=== PATIENT | female | born 1980 | race American Indian/Alaskan Native ===

== ENCOUNTER 2016-06-19 10:41 | Inpatient (IN) | payer MEDICARE ==
[2016-06-19] MEDS ORDERED: NORCO 5/325 PO ONE (13:37)
[2016-06-19 14:33] LABS: Basophils % (Auto) 0.8 % (0.0-1.8); Eosinophils % (Auto) 5.9 % (0.0-4.3); Hematocrit 35.8 % (30.3-42.9); Hemoglobin 11.4 gm/dl (10.1-14.3); Mean Corpuscular HGB Conc 32 % (30-34); Mean Corpuscular Hemoglobin 30 pg (28-32); Mean Corpuscular Volume 95 fl (79-97); Platelet Count 219 K/mm3 (140-440); Red Blood Count 3.78 M/mm3 (3.65-5.03); Red Cell Distribution Width 18.9 % (13.2-15.2); White Blood Count 7.1 K/mm3 (4.5-11.0)
--- NOTE | 2016-06-19 14:41 | XRay Report ---
LEFT FOOT, 2 VIEWS History: Osteomyelitis, pain. Findings: Compared to 08/21/09. There is moderate diffuse soft tissue swelling and possible laceration/ulceration laterally. Severe degenerative changes are noted throughout the midfoot and the ankle joint. There is no obvious fracture or bony destruction. Impression: Chronic findings are as outlined above. No obvious findings of osteomyelitis on 2 views x-ray. If further evaluation is needed, MRI with contrast would provide the most information.
--- NOTE | 2016-06-19 15:16 | XRay Report ---
ROUTINE CHEST, TWO VIEWS: HISTORY: Sepsis. The trachea, heart, mediastinal contour, lung modi and bony thorax are unremarkable. IMPRESSION: No acute cardiopulmonary process.
[2016-06-19 15:24] LABS: Potassium TNR mmol/L (3.6-5.0); Sodium TNR mmol/L (137-145)
[2016-06-19 15:25] LABS: Anion Gap TNR mmol/L; BUN/Creatinine Ratio TNR; Blood Urea Nitrogen TNR mg/dL (7-17); Calcium TNR mg/dL (8.4-10.2); Carbon Dioxide TNR mmol/L (22-30); Chloride TNR mmol/L (98-107); Glucose TNR mg/dL (65-100)
[2016-06-19 15:26] LABS: Alanine Aminotransferase TNR units/L (7-56); Albumin TNR g/dL (3.9-5); Albumin/Globulin Ratio TNR %; Alkaline Phosphatase TNR units/L (35-129); Bilirubin,Total TNR mg/dL (0.1-1.2); Total Protein TNR g/dL (6.3-8.2)
[2016-06-19 16:58] LABS: Albumin 2.8 g/dL (3.9-5); Albumin/Globulin Ratio 0.5 %; BUN/Creatinine Ratio 4.39; Bilirubin,Total 0.3 mg/dL (0.1-1.2); Chloride 97.6 mmol/L (98-107); Potassium 5.6 mmol/L (3.6-5.0); Total Protein 8.2 g/dL (6.3-8.2)
[2016-06-19 17:02] LABS: Calcium 4.9 mg/dL (8.4-10.2)
--- NOTE | 2016-06-19 18:47 | Admit Criteria Form ---
Admission Criteria Documentation: HYPONATREMIA; HYPERNATREMIA; HYPOKALEMIA; HYPERKALEMIA; HYPOCALCEMIA; HYPERCALCEMIA Clinical Indications for Inpatient Care (Place 'X' for any and all applicable criteria): Ongoing inpatient care may be indicated for ANY ONE of the following [G](1)(2)(3 )(5): [ ]I. Hyponatremia with ANY ONE of the following: [ ]a) Sodium less than 130 mEq/L (mmol/L) (new) (6)(22) [ ]b) Sodium less than 135 mEq/L (mmol/L) with ANY ONE of the following: [ ]i) Severe medical etiology requiring inpatient management (eg, heart failure, hypovolemia) [ ]ii) Altered mental status [ ]iii) Seizures [ ]II. Hypernatremia with ANY ONE of the following: [ ]a) Sodium greater than 155 mEq/L (mmol/L) [ ]b) Sodium greater than 150 mEq/L (mmol/L) with ANY ONE of the following: [ ] i) Altered mental status [ ]ii) Seizures [ ]iii) Severe medical etiology (eg, hypovolemia, diabetes insipidus) [ ]iv) Severe weakness [ ]v) Severe medical etiology (eg, hemolysis, infection, drug overdose) [ ]III. Hypokalemia with ANY ONE of the following: [ ]a) Potassium less than 2.5 mEq/L (mmol/L) despite outpatient and emergency treatment [ ]b) Potassium less than 3.0 mEq/L (mmol/L) with ANY ONE of the following: [ ]i) Weakness [ ]ii) Cardiac abnormality (eg, arrhythmia, conduction disturbance) [ ]iii) Cardiac ischemia [ ]iv) Ileus [ ]v) Ongoing medical cause requiring inpatient management. ( e.g., acute renal wasting, SIADH) [ ]vi) Other severe symptoms [X ] IV. Hyperkalemia with ANY ONE of the following: [ ]a) Potassium greater than 6.5 mEq/L (mmol/L) [X ]b) Potassium greater than 5 mEq/L (mmol/L) with ANY ONE of the following: [ ]i) Severe ECG findings [H] [X ]ii) Acute worsening of renal failure (creatinine greater than 2.5 mg/dL (221 micromoles/L) or significant elevation for age and size) [ X] V. Hypocalcemia with ANY ONE of the following: [X ]a) Calcium less than 7 mg/dL (1.75 mmol/L) despite outpatient and emergency treatment(19) [ ]b) Calcium less than 8 mg/dL (2 mmol/L) with significant symptoms or findings; examples include: [ ]i) Cardiac abnormality (eg, arrhythmia or conduction disturbance) [ ]ii) Altered mental status [ ]iii) Seizures [ ]iv) Breathing difficulty [ ]v) Muscle spasms [ ]. Hypercalcemia with ANY ONE of the following: [ ]a) Calcium greater than 14 mg/dL (3.5 mmol/L) [ ]b) Calcium greater than 12 mg/dL (3 mmol/L) with ANY ONE of the following: [ ]i) Significant dehydration or hypovolemia as indicated by ANY ONE of the following(2): [ ]1. Clinically significant dehydration as indicated by ANY ONE of the following: [ ]A. Acute loss of weight from baseline (5% of body weight in adults, 9% in pediatric patients) [ ]B. Hemodynamic instability [ ]C. Acute renal failure [ ]D. Serum sodium greater than 150 mEq/L (mmol/L) [ ]2) Dehydration that is persistent indicated by ALL of the following: [ ]A. Oral rehydration therapy not tolerated or insufficient to adequately correct dehydration [ ]B. Appropriate intravenous treatment (eg, fluids ) does not readily correct dehydration ie, after 12 to 24 hours of treatment) [ ]ii) Significant symptoms or findings; examples include: [ ]1) Altered mental status [ ]2) Cardiac abnormality (eg, arrhythmia, conduction disturbance) [ ]3) Cardiac abnormality (eg, arrhythmia, conduction disturbance) The original [facility] content created by [employer] has been revised. The portions of the content which have been revised are identified through the use of italic text or in bold, and [facility] [facility] has neither reviewed nor approved the modified material. All other unmodified content is copyright [facility] Please see references footnoted in the original [facility] edition 2016 Admission Criteria Met: Yes
[2016-06-19] MEDS ORDERED: MILK OF MAGNESIA PO PRN (21:00)
[2016-06-19] MEDS ORDERED: DULCOLAX PR PRN (21:00)
--- NOTE | 2016-06-19 21:00 | History and Physical Report ---
History of Present Illness Date of examination: 06/19/16 Date of admission: 06/19/16 Chief complaint: L foot infection 2 weeks History of present illness: 36 year old female with PMhx nephrotic syndrome, dialysis presents to the ED for evaluation of callous to bottom of left foot. She reports callous was evaluated by PCP when it was approximately dime sized but notes area became cracked and enlarged 2 weeks age. She reports malodourous drainage with small amount blood from area for several days. 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 Patient does not make any urine and attends dialysis MWF; states she did not go to dialysis today and last treatment was 2 days ago. Denies fever, nausea, vomiting, chest pain, shortness of breath, chills and abdominal pain. Past History Past Medical History: ESRD, hypertension Past Surgical History: Other (AV fistula) Medications and Allergies Allergies Allergy/AdvReac Type Severity Reaction Status Date / Time No Known Allergies Allergy Verified 06/19/16 10:46 Home Medications Medication Instructions Recorded Confirmed Last Taken Type No Known Home Medications [No 06/19/16 06/19/16 Unknown History Reported Home Medications] Review of Systems All systems: negative Constitutional: no weight loss, no weight gain Ears, nose, mouth and throat: no dysphagia, no hoarseness, no sore throat Breasts: deferred Cardiovascular: no chest pain, no orthopnea, no palpitations, no shortness of breath, no dyspnea on exertion Respiratory: no shortness of breath, no dyspnea on exertion, no congestion, no wheezing Gastrointestinal: no abdominal pain, no nausea, no vomiting, no diarrhea, no constipation, no change in bowel habits, no hematemesis Genitourinary Female: no dyspareunia, no dysmenorrhea, no pelvic pain Menstruation: currently menstrual Musculoskeletal: no neck stiffness, no neck pain Integumentary: sores (L foot) Neurological: no seizures, no syncope Psychiatric: no anxiety, no depression Endocrine: no cold intolerance, no heat intolerance, no polyphagia, no excessive thirst Hematologic/Lymphatic: no easy bruising, no easy bleeding Allergic/Immunologic: no urticaria, no allergic rhinitis, no wheezing Exam - Constitutional Vitals: Temp Pulse Resp BP Pulse Ox 97.6 F 71 18 145/89 100 06/19/16 12:25 06/19/16 12:25 06/19/16 12:25 06/19/16 12:25 06/19/16 19:48 General appearance: Present: no acute distress, well-nourished - EENT Eyes: Present: PERRL ENT: hearing intact, clear oral mucosa - Neck Neck: Present: supple, normal ROM - Respiratory Respiratory effort: normal Respiratory: bilateral: CTA - Cardiovascular Rhythm: regular Heart Sounds: Present: S1 & S2. Absent: rub, click - Extremities Extremities: pulses symmetrical, No edema Extremity abnormal: ulceration (L foot with drainage) Peripheral Pulses: within normal limits - Abdominal General gastrointestinal: Present: soft, non-tender, non-distended, normal bowel sounds Female genitourinary: Present: normal - Integumentary Integumentary: Present: clear, warm, dry - Musculoskeletal Musculoskeletal: gait normal, strength equal bilaterally - Psychiatric Psychiatric: appropriate mood/affect, intact judgment & insight - Neurologic Neurologic: CNII-XII intact, moves all extremities - Allied Health Allied health notes reviewed: nursing, case management Results - Labs CBC & Chem 7: 06/20/16 05:13 06/20/16 05:13 Labs: Laboratory Last Values WBC 7.1 K/mm3 (4.5-11.0) 06/19/16 13:52 RBC 3.78 M/mm3 (3.65-5.03) 06/19/16 13:52 Hgb 11.4 gm/dl (10.1-14.3) 06/19/16 13:52 Hct 35.8 % (30.3-42.9) 06/19/16 13:52 MCV 95 fl (79-97) 06/19/16 13:52 MCH 30 pg (28-32) 06/19/16 13:52 MCHC 32 % (30-34) 06/19/16 13:52 RDW 18.9 % (13.2-15.2) H 06/19/16 13:52 Plt Count 219 K/mm3 (140-440) 06/19/16 13:52 Lymph % (Auto) 20.0 % (13.4-35.0) 06/19/16 13:52 [place] % (Auto) 9.2 % (0.0-7.3) H 06/19/16 13:52 Eos % (Auto) 5.9 % (0.0-4.3) H 06/19/16 13:52 Baso % (Auto) 0.8 % (0.0-1.8) 06/19/16 13:52 Lymph # 1.4 K/mm3 (1.2-5.4) 06/19/16 13:52 [place] # 0.7 K/mm3 (0.0-0.8) 06/19/16 13:52 Eos # 0.4 K/mm3 (0.0-0.4) 06/19/16 13:52 Baso # 0.1 K/mm3 (0.0-0.1) 06/19/16 13:52 Seg Neutrophils % 64.1 % (40.0-70.0) 06/19/16 13:52 Seg Neutrophils # 4.5 K/mm3 (1.8-7.7) 06/19/16 13:52 Sodium 138 mmol/L (137-145) 06/19/16 16:22 Potassium 5.6 mmol/L (3.6-5.0) H 06/19/16 16:22 Chloride 97.6 mmol/L (98-107) L 06/19/16 16:22 Carbon Dioxide 19 mmol/L (22-30) L 06/19/16 16:22 Anion Gap 27 mmol/L 06/19/16 16:22 BUN 54 mg/dL (7-17) H 06/19/16 16:22 Creatinine 12.3 mg/dL (0.7-1.2) H 06/19/16 16:22 Estimated GFR 4 ml/min 06/19/16 16:22 BUN/Creatinine Ratio 4.39 % 06/19/16 16:22 Glucose 79 mg/dL (65-100) 06/19/16 16:22 Lactic Acid 1.9 mmol/L (0.7-2.0) 06/19/16 13:52 Calcium 4.9 mg/dL (8.4-10.2) L* 06/19/16 16:22 Total Bilirubin 0.3 mg/dL (0.1-1.2) 06/19/16 16:22 AST 16 units/L (5-40) 06/19/16 16:22 ALT 11 units/L (7-56) 06/19/16 16:22 Alkaline Phosphatase 88 units/L (35-129) 06/19/16 16:22 Total Protein 8.2 g/dL (6.3-8.2) 06/19/16 16:22 Albumin 2.8 g/dL (3.9-5) L 06/19/16 16:22 Albumin/Globulin Ratio 0.5 % 06/19/16 16:22 Short CBC 06/19/16 Range/Units 13:52 WBC 7.1 (4.5-11.0) K/mm3 Hgb 11.4 (10.1-14.3) gm/dl Hct 35.8 (30.3-42.9) % Plt Count 219 (140-440) K/mm3 [facility] 06/19/16 06/19/16 13:52 16:22 Sodium TNR 138 Potassium TNR 5.6 H Chloride TNR 97.6 L Carbon Dioxide TNR 19 L BUN TNR 54 H Creatinine TNR 12.3 H Glucose TNR 79 Calcium TNR 4.9 L* Liver Function 06/19/16 06/19/16 Range/Units 13:52 16:22 Total Bilirubin TNR 0.3 AST TNR 16 ALT TNR 11 Alkaline Phosphatase TNR 88 Albumin TNR 2.8 L Short CBC 06/19/16 06/20/16 Range/Units 13:52 05:13 WBC 7.1 (4.5-11.0) K/mm3 Hgb 11.4 11.3 (10.1-14.3) gm/dl Hct 35.8 36.3 (30.3-42.9) % Plt Count 219 (140-440) K/mm3 [facility] 06/19/16 06/19/16 06/20/16 13:52 16:22 05:13 Sodium TNR 138 133 L Potassium TNR 5.6 H 5.4 H Chloride TNR 97.6 L 96.9 L Carbon Dioxide TNR 19 L 18 L BUN TNR 54 H 55 H Creatinine TNR 12.3 H 13.3 H Glucose TNR 79 66 Calcium TNR 4.9 L* 4.9 L* Liver Function 06/19/16 06/19/16 06/20/16 Range/Units 13:52 16:22 05:13 Total Bilirubin TNR 0.3 0.4 AST TNR 16 14 ALT TNR 11 9 Alkaline Phosphatase TNR 88 78 Albumin TNR 2.8 L 2.9 L Assessment and Plan Advance Directives: Yes (Full code) VTE prophylaxis?: Chemical Plan of care discussed with patient/family: Yes - Patient Problems (1) Hypocalcemia Current Visit: Yes Status: Acute Plan to address problem: Calcitriol and IV Calcium gluconate ordered.Will defer to Nephrology. (2) Foot ulcer, left Current Visit: Yes Status: Acute Qualifiers: Non-pressure ulcer stage: with fat layer exposed Qualified Code(s): L97.522 - Non-pressure chronic ulcer of other part of left foot with fat layer exposed Plan to address problem: Iv abx and wound care (3) End stage renal disease Current Visit: Yes Status: Chronic Plan to address problem: Cont HD (4) Hyperkalemia Current Visit: Yes Status: Acute Plan to address problem: Corrected (5) DVT prophylaxis Current Visit: Yes Status: Acute Plan to address problem: on Heparin
[2016-06-19] MEDS ORDERED: CALCIJEX IV ONE (21:03)
[2016-06-19] MEDS ORDERED: CALCIUM GLUCONATE 2,000 MG in NACL 0.9% 100 ML IV ONE (21:04)
[2016-06-19] MEDS ORDERED: PEPCID IV SCH (22:00)
[2016-06-19] MEDS ORDERED: CALCIJEX IV SCH (22:00)
[2016-06-19] MEDS: DILAUDID IV PRN (22:17)
[2016-06-19] MEDS: ZOFRAN IV PRN (22:18)
[2016-06-20] MEDS: CALTRATE PLUS PO SCH ×2 (01:13→11:09)
[2016-06-20] MEDS: DILAUDID IV PRN ×2 (01:15→08:03)
[2016-06-20] MEDS: HEPARIN SUB-Q SCH ×2 (01:16→11:13)
[2016-06-20 06:49] LABS: Hematocrit 36.3 % (30.3-42.9); Hemoglobin 11.3 gm/dl (10.1-14.3); Mean Corpuscular HGB Conc 31 % (30-34); Mean Corpuscular Hemoglobin 30 pg (28-32); Mean Corpuscular Volume 95 fl (79-97); Red Blood Count 3.84 M/mm3 (3.65-5.03); Red Cell Distribution Width 18.8 % (13.2-15.2)
[2016-06-20 07:02] LABS: Albumin 2.9 g/dL (3.9-5); Albumin/Globulin Ratio 0.6 %; BUN/Creatinine Ratio 4.13; Bilirubin,Total 0.4 mg/dL (0.1-1.2); Chloride 96.9 mmol/L (98-107); Potassium 5.4 mmol/L (3.6-5.0); Total Protein 7.9 g/dL (6.3-8.2)
[2016-06-20 07:20] LABS: Calcium 4.9 mg/dL (8.4-10.2)
[2016-06-20] MEDS ORDERED: LEVAQUIN 750MG/150ML 150 ML IV SCH (09:00)
--- NOTE | 2016-06-20 09:49 | Progress Note ---
Assessment and Plan Assessment and plan: --Left ankle infected wound and cellulitis Wound care, IV antibiotics, wound cultures --End-stage renal disease on hemodialysis Non-complains, nephrology evaluation Hemodialysis per schedule --Hypocalcemia Replacement therapy, nephrology following Continue calcitriol and calcium replacement --Hyperkalemia Secondary to end-stage renal disease, corrected Nephrology following --DVT prophylaxis Continue heparin --Non-complains with hemodialysis Counseling done patient strongly advised to comply with diet Medications and hemodialysis, verbalized understanding --Ongoing tobacco use Smoking cessation counseling done, this and consequences of ongoing tobacco use explained to the patient Advised nicotine patch, I spent 10 minutes counseling the patient Patient verbalized understanding Patient's condition treatment plan discussed in detail with the patient, her nurse as well as the case management History Interval history: Patient seen and evaluated in her room this morning medical records reviewed Admitted with left heel infected wound as well as missed hemodialysis Patient denies any chest pain shortness of breath Alert awake oriented 3 not in acute distress Hospitalist Physical - Constitutional Vitals: Temp Pulse Resp BP Pulse Ox 99 F 74 16 134/72 98 06/20/16 08:00 06/20/16 08:00 06/20/16 08:00 06/20/16 08:00 06/20/16 08:00 General appearance: Present: no acute distress, well-nourished - EENT Eyes: Present: PERRL, EOM intact - Neck Neck: Present: supple, normal ROM - Respiratory Respiratory effort: normal Respiratory: bilateral: diminished, rales, negative: rhonchi, wheezing - Cardiovascular Rhythm: regular Heart Sounds: Present: S1 & S2 - Extremities Extremities: no ischemia, pulses intact, pulses symmetrical, abnormal (left foot dressing intact) - Abdominal General gastrointestinal: soft, non-tender, non-distended, normal bowel sounds - Integumentary Integumentary: Present: clear, warm - Psychiatric Psychiatric: appropriate mood/affect, cooperative - Neurologic Neurologic: CNII-XII intact, moves all extremities Results - Labs CBC & Chem 7: 06/20/16 05:13 06/20/16 05:13 Labs: Laboratory Last Values WBC 7.1 K/mm3 (4.5-11.0) 06/19/16 13:52 RBC 3.84 M/mm3 (3.65-5.03) 06/20/16 05:13 Hgb 11.3 gm/dl (10.1-14.3) 06/20/16 05:13 Hct 36.3 % (30.3-42.9) 06/20/16 05:13 MCV 95 fl (79-97) 06/20/16 05:13 MCH 30 pg (28-32) 06/20/16 05:13 MCHC 31 % (30-34) 06/20/16 05:13 RDW 18.8 % (13.2-15.2) H 06/20/16 05:13 Plt Count 219 K/mm3 (140-440) 06/19/16 13:52 Lymph % (Auto) 20.0 % (13.4-35.0) 06/19/16 13:52 [place] % (Auto) 9.2 % (0.0-7.3) H 06/19/16 13:52 Eos % (Auto) 5.9 % (0.0-4.3) H 06/19/16 13:52 Baso % (Auto) 0.8 % (0.0-1.8) 06/19/16 13:52 Lymph # 1.4 K/mm3 (1.2-5.4) 06/19/16 13:52 [place] # 0.7 K/mm3 (0.0-0.8) 06/19/16 13:52 Eos # 0.4 K/mm3 (0.0-0.4) 06/19/16 13:52 Baso # 0.1 K/mm3 (0.0-0.1) 06/19/16 13:52 Seg Neutrophils % 64.1 % (40.0-70.0) 06/19/16 13:52 Seg Neutrophils # 4.5 K/mm3 (1.8-7.7) 06/19/16 13:52 Sodium 133 mmol/L (137-145) L 06/20/16 05:13 Potassium 5.4 mmol/L (3.6-5.0) H 06/20/16 05:13 Chloride 96.9 mmol/L (98-107) L 06/20/16 05:13 Carbon Dioxide 18 mmol/L (22-30) L 06/20/16 05:13 Anion Gap 24 mmol/L 06/20/16 05:13 BUN 55 mg/dL (7-17) H 06/20/16 05:13 Creatinine 13.3 mg/dL (0.7-1.2) H 06/20/16 05:13 Estimated GFR 4 ml/min 06/20/16 05:13 BUN/Creatinine Ratio 4.13 % 06/20/16 05:13 Glucose 66 mg/dL (65-100) 06/20/16 05:13 Lactic Acid 1.9 mmol/L (0.7-2.0) 06/19/16 13:52 Calcium 4.9 mg/dL (8.4-10.2) L* 06/20/16 05:13 Total Bilirubin 0.4 mg/dL (0.1-1.2) 06/20/16 05:13 AST 14 units/L (5-40) 06/20/16 05:13 ALT 9 units/L (7-56) 06/20/16 05:13 Alkaline Phosphatase 78 units/L (35-129) 06/20/16 05:13 Total Protein 7.9 g/dL (6.3-8.2) 06/20/16 05:13 Albumin 2.9 g/dL (3.9-5) L 06/20/16 05:13 Albumin/Globulin Ratio 0.6 % 06/20/16 05:13
[2016-06-20] MEDS ORDERED: VANCOMYCIN VIAL 1,000 MG in NACL 0.9% 250ML 250 ML IV SCH (10:00)
[2016-06-20 10:34] LABS: Blastocytes % (Manual) 0 %
[2016-06-20 10:35] LABS: Anisocytosis 1+; Elliptocytes 1+; Poikilocytosis 1+
[2016-06-20 10:39] LABS: Platelet Estimate Appears Decreased
[2016-06-20 10:40] LABS: Diff Status Complete
[2016-06-20 10:41] LABS: Platelet Count 105 K/mm3 (140-440)
[2016-06-20] MEDS ORDERED: CALCIUM GLUCONATE 1,000 MG in NACL 0.9% 100 ML IV ONE (11:00)
[2016-06-20] MEDS: PEPCID IV SCH (11:10)
[2016-06-20] MEDS ORDERED: LEVAQUIN 750MG/150ML 750 MG/150 ML BAG IV ONE (12:00)
[2016-06-20] MEDS ORDERED: VANCOMYCIN VIAL 1,250 MG in NACL 0.9% 250ML 250 ML IV ONE (13:00)
[2016-06-20] MEDS ORDERED: HEPARIN 10,000 UNITS/10 ML IV PRN (15:00)
[2016-06-20] MEDS ORDERED: NACL 0.9% 100 ML IV PRN (15:00)
[2016-06-20] MEDS: ZOFRAN IV PRN ×2 (15:02→20:25)
--- NOTE | 2016-06-20 16:19 | Consultation ---
History of Present Illness - Reason for Consult Consult date: 06/20/16 end stage renal disease Requesting physician: RODOLFO SOLIS - History of Present Illness 36 year old female with PMhx ESRD on maintenance hemodialysis presented to the ED for evaluation of callous to bottom of left foot. She reports callous was evaluated by PCP when it was approximately dime sized but notes area became cracked and enlarged 2 weeks age. She reports malodourous drainage with small amount blood from area for several days. 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 Patient does not make any urine and attends dialysis MWF; states she did not go to dialysis yesterday and last treatment was 3 days ago. Denies fever, nausea, vomiting, chest pain, shortness of breath, chills and abdominal pain. She undergoes hemodialysis at [facility] under the care of Dr. Yu Past History Past Medical History: ESRD, hypertension Past Surgical History: Other (AV fistula) Medications and Allergies Allergies Allergy/AdvReac Type Severity Reaction Status Date / Time No Known Allergies Allergy Verified 06/19/16 10:46 Home Medications Medication Instructions Recorded Confirmed Last Taken Type No Known Home Medications [No 06/19/16 06/19/16 Unknown History Reported Home Medications] Active Meds: Active Medications Acetaminophen (Tylenol) 650 mg PO Q4H PRN PRN Reason: Pain MILD(1-3)/Fever >100.5/[facility] Bisacodyl (Dulcolax) 10 mg DE QDAY PRN PRN Reason: Constipation unrelieved by MOM Calcitriol (Calcijex) 1 mcg IV MICHELLE [facility] Famotidine (Pepcid) 20 mg IV DAILY [facility] Last Admin: 06/20/16 11:10 Dose: 20 mg Heparin Sodium (Porcine) (Heparin) 5,000 unit SUB-Q Q12HR [facility] Last Admin: 06/20/16 11:13 Dose: Not Given Heparin Sodium (Porcine) (Heparin 10,000 Units/10 Ml) 4,000 unit IV MICHELLE PRN PRN Reason: hemodialysis Hydromorphone HCl (Dilaudid) 0.5 mg IV Q3H PRN PRN Reason: Pain , Severe (7-10) Last Admin: 06/20/16 08:03 Dose: 0.5 mg Levofloxacin/Dextrose (Levaquin 500mg/100ml) 500 mg in 100 mls @ 100 mls/hr IV Q48H [facility] Sodium Chloride (Nacl 0.9%) 100 mls @ 999 mls/hr IV MICHELLE PRN PRN Reason: Hypotension Magnesium Hydroxide (Milk Of Magnesia) 30 ml PO Q4H PRN PRN Reason: Constipation Multivitamins/Minerals (Caltrate Plus) 1 each PO BID JARAD Last Admin: 06/20/16 11:09 Dose: 1 each Ondansetron HCl (Zofran) 4 mg IV Q8H PRN PRN Reason: N/V unrelieved by Reglan Last Admin: 06/20/16 15:02 Dose: 4 mg Oxycodone/Acetaminophen (Percocet 5/325) 1 tab PO Q6H PRN PRN Reason: Pain, Moderate (4-6) Review of Systems All systems: negative (negative except as noted above) Exam - Vital Signs Vital signs: Vital Signs Temp Pulse Resp BP Pulse Ox 97.5 F L 81 18 144/93 100 06/19/16 10:48 06/19/16 10:48 06/19/16 10:48 06/19/16 10:48 06/19/16 10:48 - General Appearance General appearance: well-developed, well-nourished, appears stated age EENT: PERRL, mucous membranes moist Neck: Present: neck supple, trachea midline. Absent: JVD/HJR, Masses Respiratory: Clear to Ascultation Heart: regular, normal heart rate, S1S2, no murmurs Gastrointestinal: Present: normal, normoactive bowel sounds Integumentary: no rash, other (left foot wrapped with bandage. AV fistula in her left upper arm. Good bruit and thrill) Results - Lab Results 06/20/16 05:13 06/20/16 05:13 Most recent lab results Calcium 4.9 mg/dL (8.4-10.2) L* 06/20/16 05:13 Assessment and Plan Impression * End-stage renal disease on maintenance hemodialysis * Left foot infection * Hypertension * Hyperkalemia * Anemia secondary to ESRD * Hypocalcemia probably secondary to parathyroidectomy Recommendations * Shall schedule patient for hemodialysis today * Patient serum calcium is noted to be low. Shall use at 3.5 calcium bath for dialysis today * Continue calcium supplementation * Monitor patient's serum calcium level closely and also check a parathyroid hormone level , magnesium level as well as a vitamin D level * No IV, BP or venipuncture in her access arm * Adjust diet and meds for ESRD state * Avoid nephrotoxins * Thank you very much for the consultation. Shall follow along with you
[2016-06-20] MEDS ORDERED: HEPARIN 10,000 UNITS/10 ML ONE (17:36)
[2016-06-20] MEDS ORDERED: NACL 0.9 (PRIMING MACHINE ONLY DIALYSIS) MC ONE (17:37)
[2016-06-20] MEDS: COZAAR PO SCH (20:16)
[2016-06-20] MEDS: OSCAL PO SCH (20:17)
[2016-06-20] MEDS: TYLENOL PO PRN (20:17)
[2016-06-21] MEDS: OSCAL PO SCH ×5 (00:20→21:52)
[2016-06-21] MEDS: CALTRATE PLUS PO SCH ×3 (00:20→21:52)
[2016-06-21] MEDS: HEPARIN SUB-Q SCH ×3 (00:20→22:07)
[2016-06-21 07:04] LABS: BUN/Creatinine Ratio 2.96; Calcium 6.9 mg/dL (8.4-10.2); Chloride 97.3 mmol/L (98-107); Potassium 4.5 mmol/L (3.6-5.0)
[2016-06-21] MEDS: DILAUDID IV PRN ×3 (07:32→22:02)
[2016-06-21] MEDS: MAG-OX PO SCH (09:47)
[2016-06-21] MEDS: COZAAR PO SCH (09:47)
[2016-06-21] MEDS: PEPCID IV SCH (09:47)
[2016-06-21] MEDS ORDERED: VANCOMYCIN PHARMACY TO DOSE IV SCH (10:00)
[2016-06-21] MEDS ORDERED: NACL 0.9% 100 ML IV PRN ×2 (15:57→16:36)
[2016-06-21] MEDS: TYLENOL PO PRN (16:38)
--- NOTE | 2016-06-21 18:26 | Progress Note ---
Assessment and Plan end-stage renal disease patient is currently in maintenance dialysis on Friday schedule Hypocalcemia patient likely is noncompliant with medication current calcium is improving we'll dialyze her with 2.5 calcium bath I believe patient will benefit with oral calcium in the liquid form calcium 10 cc 3 times a day which is usually absorbed better discussed with pharmacy today calcium glue via make is not available but can be available tomorrow morning In the meantime she will receive 1 g of calcium gluconate after dialysis is done in IV form discussed with pharmacy 7:30 PM patient was made aware about chronic hypocalcemia She will need to receive her 2 hour dialysis today to keep her on the schedule I believe she will benefit from further observation another 24-48 hours to make sure her calcium was stable for discharge home Upon discharge she will need to follow up with her safety glass installer We'll continue to follow and make recommendations from renal standpoint Subjective Interval history: Patient was seen today for follow-up and multiple renal related issues around 9: 45 in the morning Patient currently denies having any chest pain pressure or shortness of breath, she does have history of chronic hypocalcemia and follows up with her safety glass installer in vaginal area Events of this hospitalizations were notedhe denies having any symptoms of tingling numbness Vitals labs intake output medications were reviewed Objective - Vital Signs Vital signs: Vital Signs - 12hr 06/21/16 06/21/16 06/21/16 07:32 08:00 09:07 Temperature 99 F Pulse Rate Pulse Rate [ 80 From Monitor] Respiratory 16 14 Rate Respiratory 18 Rate [LEFT FOOT ] Blood Pressure Blood Pressure 120/70 [Left Arm] O2 Sat by Pulse 97 Oximetry 06/21/16 06/21/16 09:47 16:00 Temperature 102.7 F H Pulse Rate 80 Pulse Rate [ 88 From Monitor] Respiratory 18 Rate Respiratory Rate [LEFT FOOT ] Blood Pressure 120/80 Blood Pressure 178/92 [Left Arm] O2 Sat by Pulse Oximetry - Lab 06/20/16 05:13 06/21/16 05:25 Most recent lab results Calcium 6.9 mg/dL (8.4-10.2) L D 06/21/16 05:25 Phosphorus 2.6 mg/dL (2.5-4.5) 06/20/16 19:22 Magnesium 1.6 mg/dL (1.7-2.3) L 06/20/16 19:20
--- NOTE | 2016-06-21 19:03 | Progress Note ---
Assessment and Plan Assessment and plan: --End-stage renal disease on hemodialysis Nephrology following Hemodialysis per schedule --Left ankle infected wound and cellulitis Wound care, IV antibiotics, wound cultures Orthopedic consultation for assistance with management --Hypocalcemia Replacement therapy, nephrology following Mild improvement --DVT prophylaxis Continue heparin Counseling done patient strongly advised to comply with diet Medications and hemodialysis, verbalized understanding --Ongoing tobacco use Smoking cessation counseling done ,nicotine patch as needed Continue current management, plan of care discussed with the patient and the nurse History Interval history: Patient seen and evaluated,Medical records reviewed Patient is admitted with,Foot cellulitis and infected wound, on IV antibiotics She feels better no new complaints Hospitalist Physical - Constitutional Vitals: Temp Pulse Resp BP Pulse Ox 102.7 F H 107 H 18 128/89 97 06/21/16 16:00 06/21/16 18:15 06/21/16 16:00 06/21/16 18:15 06/21/16 08:00 General appearance: Present: no acute distress, well-nourished - EENT Eyes: Present: PERRL, EOM intact - Neck Neck: Present: supple, normal ROM - Respiratory Respiratory effort: normal Respiratory: negative: rales, rhonchi, wheezing - Cardiovascular Rhythm: regular Heart Sounds: Present: S1 & S2 - Extremities Extremities: no ischemia, pulses intact, pulses symmetrical, abnormal (left foot in dressing) - Abdominal General gastrointestinal: soft, non-tender, non-distended, normal bowel sounds - Integumentary Integumentary: Present: clear, warm - Psychiatric Psychiatric: appropriate mood/affect, cooperative - Neurologic Neurologic: CNII-XII intact, moves all extremities Results - Labs CBC & Chem 7: 06/22/16 14:29 06/22/16 14:29 Labs: Laboratory Last Values WBC 10.0 K/mm3 (4.5-11.0) 06/20/16 05:13 RBC 3.84 M/mm3 (3.65-5.03) 06/20/16 05:13 Hgb 11.3 gm/dl (10.1-14.3) 06/20/16 05:13 Hct 36.3 % (30.3-42.9) 06/20/16 05:13 MCV 95 fl (79-97) 06/20/16 05:13 MCH 30 pg (28-32) 06/20/16 05:13 MCHC 31 % (30-34) 06/20/16 05:13 RDW 18.8 % (13.2-15.2) H 06/20/16 05:13 Plt Count 105 K/mm3 (140-440) L 06/20/16 05:13 Lymph % (Auto) 20.0 % (13.4-35.0) 06/19/16 13:52 [place] % (Auto) 9.2 % (0.0-7.3) H 06/19/16 13:52 Eos % (Auto) 5.9 % (0.0-4.3) H 06/19/16 13:52 Baso % (Auto) 0.8 % (0.0-1.8) 06/19/16 13:52 Lymph # 1.4 K/mm3 (1.2-5.4) 06/19/16 13:52 [place] # 0.7 K/mm3 (0.0-0.8) 06/19/16 13:52 Eos # 0.4 K/mm3 (0.0-0.4) 06/19/16 13:52 Baso # 0.1 K/mm3 (0.0-0.1) 06/19/16 13:52 Add Manual Diff Complete 06/20/16 05:13 Total Counted 100 06/20/16 05:13 Seg Neutrophils % 64.1 % (40.0-70.0) 06/19/16 13:52 Seg Neuts % (Manual) 69.0 % (40.0-70.0) 06/20/16 05:13 Band Neutrophils % 0 % 06/20/16 05:13 Lymphocytes % (Manual) 19.0 % (13.4-35.0) 06/20/16 05:13 Reactive Lymphs % (Man) 0 % 06/20/16 05:13 Monocytes % (Manual) 8.0 % (0.0-7.3) H 06/20/16 05:13 Eosinophils % (Manual) 2.0 % (0.0-4.3) 06/20/16 05:13 Basophils % (Manual) 1.0 % (0.0-1.8) 06/20/16 05:13 Metamyelocytes % 0 % 06/20/16 05:13 Myelocytes % 1.0 % 06/20/16 05:13 Promyelocytes % 0 % 06/20/16 05:13 Blast Cells % 0 % 06/20/16 05:13 Nucleated RBC % Not Reportable 06/20/16 05:13 Seg Neutrophils # 4.5 K/mm3 (1.8-7.7) 06/19/16 13:52 Seg Neutrophils # Man 0.0 K/mm3 (1.8-7.7) L 06/20/16 05:13 Band Neutrophils # 0.0 K/mm3 06/20/16 05:13 Lymphocytes # (Manual) 0.0 K/mm3 (1.2-5.4) L 06/20/16 05:13 Abs React Lymphs (Man) 0.0 K/mm3 06/20/16 05:13 Monocytes # (Manual) 0.0 K/mm3 (0.0-0.8) 06/20/16 05:13 Eosinophils # (Manual) 0.0 K/mm3 (0.0-0.4) 06/20/16 05:13 Basophils # (Manual) 0.0 K/mm3 (0.0-0.1) 06/20/16 05:13 Metamyelocytes # 0.0 K/mm3 06/20/16 05:13 Myelocytes # 0.0 K/mm3 06/20/16 05:13 Promyelocytes # 0.0 K/mm3 06/20/16 05:13 Blast Cells # 0.0 K/mm3 06/20/16 05:13 WBC Morphology Not Reportable 06/20/16 05:13 Hypersegmented Neuts Not Reportable 06/20/16 05:13 Hyposegmented Neuts Not Reportable 06/20/16 05:13 Hypogranular Neuts Not Reportable 06/20/16 05:13 Smudge Cells Not Reportable 06/20/16 05:13 Toxic Granulation Not Reportable 06/20/16 05:13 Toxic Vacuolation Not Reportable 06/20/16 05:13 Dohle Bodies Not Reportable 06/20/16 05:13 Pelger-Huet Anomaly Not Reportable 06/20/16 05:13 Werner Rods Not Reportable 06/20/16 05:13 Platelet Estimate Appears decreased 06/20/16 05:13 Clumped Platelets Not Reportable 06/20/16 05:13 Plt Clumps, EDTA Not Reportable 06/20/16 05:13 Large Platelets Not Reportable 06/20/16 05:13 Giant Platelets Not Reportable 06/20/16 05:13 Platelet Satelliting Not Reportable 06/20/16 05:13 Plt Morphology Comment Not Reportable 06/20/16 05:13 RBC Morphology Not Reportable 06/20/16 05:13 Dimorphic RBCs Not Reportable 06/20/16 05:13 Polychromasia Not Reportable 06/20/16 05:13 Hypochromasia Not Reportable 06/20/16 05:13 Poikilocytosis 1+ 06/20/16 05:13 Anisocytosis 1+ 06/20/16 05:13 Microcytosis Not Reportable 06/20/16 05:13 Macrocytosis Not Reportable 06/20/16 05:13 Spherocytes Not Reportable 06/20/16 05:13 Pappenheimer Bodies Not Reportable 06/20/16 05:13 Sickle Cells Not Reportable 06/20/16 05:13 Target Cells Not Reportable 06/20/16 05:13 Tear Drop Cells Not Reportable 06/20/16 05:13 Ovalocytes Not Reportable 06/20/16 05:13 Helmet Cells Not Reportable 06/20/16 05:13 [place] Bodies Not Reportable 06/20/16 05:13 [place] Rings Not Reportable 06/20/16 05:13 [place] Cells Not Reportable 06/20/16 05:13 Bite Cells Not Reportable 06/20/16 05:13 Crenated Cell Not Reportable 06/20/16 05:13 Elliptocytes 1+ 06/20/16 05:13 Acanthocytes (Spur) Not Reportable 06/20/16 05:13 Rouleaux Not Reportable 06/20/16 05:13 Hemoglobin C Crystals Not Reportable 06/20/16 05:13 Schistocytes Not Reportable 06/20/16 05:13 Malaria parasites Not Reportable 06/20/16 05:13 Eddie Bodies Not Reportable 06/20/16 05:13 Hem Pathologist Commnt No 06/20/16 05:13 Sodium 138 mmol/L (137-145) 06/21/16 05:25 Potassium 4.5 mmol/L (3.6-5.0) 06/21/16 05:25 Chloride 97.3 mmol/L (98-107) L 06/21/16 05:25 Carbon Dioxide 26 mmol/L (22-30) D 06/21/16 05:25 Anion Gap 19 mmol/L 06/21/16 05:25 BUN 24 mg/dL (7-17) H 06/21/16 05:25 Creatinine 8.1 mg/dL (0.7-1.2) H 06/21/16 05:25 Estimated GFR 7 ml/min 06/21/16 05:25 BUN/Creatinine Ratio 2.96 % 06/21/16 05:25 Glucose 107 mg/dL (65-100) H 06/21/16 05:25 Lactic Acid 1.9 mmol/L (0.7-2.0) 06/19/16 13:52 Calcium 6.9 mg/dL (8.4-10.2) L D 06/21/16 05:25 Phosphorus 2.6 mg/dL (2.5-4.5) 06/20/16 19:22 Magnesium 1.6 mg/dL (1.7-2.3) L 06/20/16 19:20 Total Bilirubin 0.4 mg/dL (0.1-1.2) 06/20/16 05:13 AST 14 units/L (5-40) 06/20/16 05:13 ALT 9 units/L (7-56) 06/20/16 05:13 Alkaline Phosphatase 78 units/L (35-129) 06/20/16 05:13 Total Protein 7.9 g/dL (6.3-8.2) 06/20/16 05:13 Albumin 2.9 g/dL (3.9-5) L 06/20/16 05:13 Albumin/Globulin Ratio 0.6 % 06/20/16 05:13 PTH Intact 2.71 pg/mL (15-65) L 06/20/16 19:21
[2016-06-21] MEDS ORDERED: NACL 0.9 (PRIMING MACHINE ONLY DIALYSIS) MC ONE (20:40)
[2016-06-21] MEDS ORDERED: CALCIUM GLUCONATE 1,000 MG in NACL 0.9% 100 ML IV ONE (21:00)
[2016-06-21] MEDS: BENADRYL PO PRN (23:30)
[2016-06-22] MEDS: DILAUDID IV PRN ×3 (09:44→20:35)
[2016-06-22] MEDS: BENADRYL PO PRN ×2 (09:59→20:35)
[2016-06-22] MEDS: CALTRATE PLUS PO SCH (10:00)
[2016-06-22] MEDS: MAG-OX PO SCH (10:03)
[2016-06-22] MEDS: OSCAL PO SCH ×3 (10:03→18:55)
[2016-06-22] MEDS: PEPCID IV SCH (10:07)
[2016-06-22] MEDS: COZAAR PO SCH (10:07)
[2016-06-22] MEDS: HEPARIN SUB-Q SCH (10:11)
--- NOTE | 2016-06-22 10:58 | Progress Note ---
Assessment and Plan end-stage renal disease currently on maintenance hemodialysis Secondary hyperparathyroidism with severe hypocalcemia clinically asymptomatic no complaints of tingling numbness Shows calcium is better likely due to noncompliance she was not taking medicines like she should Her infection currently being followed by primary team Limited long-term prognosis due to multiple comorbidities will continue to follow Objective - Vital Signs Vital signs: Vital Signs - 12hr 06/22/16 06/22/16 07:45 09:44 Temperature 99.1 F Pulse Rate [ 83 From Monitor] Respiratory 18 18 Rate Blood Pressure 117/76 [Left Arm] - Lab 06/22/16 14:29 06/22/16 14:29 Most recent lab results Calcium 6.9 mg/dL (8.4-10.2) L D 06/21/16 05:25 Phosphorus 2.6 mg/dL (2.5-4.5) 06/20/16 19:22 Magnesium 1.6 mg/dL (1.7-2.3) L 06/20/16 19:20
[2016-06-22] MEDS ORDERED: CALCIONATE PO SCH (12:00)
[2016-06-22] MEDS ORDERED: LEVAQUIN 500MG/100ML 500 MG/100 ML BAG IV SCH (12:00)
--- NOTE | 2016-06-22 12:10 | Progress Note ---
Assessment and Plan Assessment and plan: --Left ankle infected wound and cellulitis Wound care, IV antibiotics, wound cultures Orthopedic consultation for assistance with management --End-stage renal disease on hemodialysis Nephrology following Hemodialysis per schedule --Hypocalcemia Replacement therapy, nephrology following Mild improvement --Hyperkalemia Corrected --DVT prophylaxis Continue heparin Counseling done patient strongly advised to comply with diet Medications and hemodialysis, verbalized understanding --Ongoing tobacco use Smoking cessation counseling done, this and consequences of ongoing tobacco use explained to the patient Advised nicotine patch, as needed Patient's condition treatment plan discussed in detail with the patient, her nurse as well as the case management History Interval history: Patient seen and evaluated,Medical records reviewed Patient is admitted with,Foot cellulitis and infected wound, on IV antibiotics Orthopedic consult requested Patient has no new complaints Low-grade fever Hospitalist Physical - Constitutional Vitals: Temp Pulse Resp BP Pulse Ox 99.1 F 83 18 117/76 97 06/22/16 07:45 06/22/16 07:45 06/22/16 09:44 06/22/16 07:45 06/21/16 08:00 General appearance: Present: no acute distress, well-nourished - EENT Eyes: Present: PERRL, EOM intact - Neck Neck: Present: supple, normal ROM - Respiratory Respiratory effort: normal Respiratory: negative: rales, rhonchi, wheezing - Cardiovascular Rhythm: regular Heart Sounds: Present: S1 & S2 - Extremities Extremities: no ischemia, pulses intact, pulses symmetrical, abnormal (left foot cellulitis infected wound and dressing) - Abdominal General gastrointestinal: soft, non-tender, non-distended, normal bowel sounds - Integumentary Integumentary: Present: clear, warm - Psychiatric Psychiatric: appropriate mood/affect, cooperative - Neurologic Neurologic: CNII-XII intact, moves all extremities Results - Labs CBC & Chem 7: 06/22/16 14:29 06/22/16 14:29 Labs: Laboratory Last Values WBC 10.0 K/mm3 (4.5-11.0) 06/20/16 05:13 RBC 3.84 M/mm3 (3.65-5.03) 06/20/16 05:13 Hgb 11.3 gm/dl (10.1-14.3) 06/20/16 05:13 Hct 36.3 % (30.3-42.9) 06/20/16 05:13 MCV 95 fl (79-97) 06/20/16 05:13 MCH 30 pg (28-32) 06/20/16 05:13 MCHC 31 % (30-34) 06/20/16 05:13 RDW 18.8 % (13.2-15.2) H 06/20/16 05:13 Plt Count 105 K/mm3 (140-440) L 06/20/16 05:13 Lymph % (Auto) 20.0 % (13.4-35.0) 06/19/16 13:52 [place] % (Auto) 9.2 % (0.0-7.3) H 06/19/16 13:52 Eos % (Auto) 5.9 % (0.0-4.3) H 06/19/16 13:52 Baso % (Auto) 0.8 % (0.0-1.8) 06/19/16 13:52 Lymph # 1.4 K/mm3 (1.2-5.4) 06/19/16 13:52 [place] # 0.7 K/mm3 (0.0-0.8) 06/19/16 13:52 Eos # 0.4 K/mm3 (0.0-0.4) 06/19/16 13:52 Baso # 0.1 K/mm3 (0.0-0.1) 06/19/16 13:52 Add Manual Diff Complete 06/20/16 05:13 Total Counted 100 06/20/16 05:13 Seg Neutrophils % 64.1 % (40.0-70.0) 06/19/16 13:52 Seg Neuts % (Manual) 69.0 % (40.0-70.0) 06/20/16 05:13 Band Neutrophils % 0 % 06/20/16 05:13 Lymphocytes % (Manual) 19.0 % (13.4-35.0) 06/20/16 05:13 Reactive Lymphs % (Man) 0 % 06/20/16 05:13 Monocytes % (Manual) 8.0 % (0.0-7.3) H 06/20/16 05:13 Eosinophils % (Manual) 2.0 % (0.0-4.3) 06/20/16 05:13 Basophils % (Manual) 1.0 % (0.0-1.8) 06/20/16 05:13 Metamyelocytes % 0 % 06/20/16 05:13 Myelocytes % 1.0 % 06/20/16 05:13 Promyelocytes % 0 % 06/20/16 05:13 Blast Cells % 0 % 06/20/16 05:13 Nucleated RBC % Not Reportable 06/20/16 05:13 Seg Neutrophils # 4.5 K/mm3 (1.8-7.7) 06/19/16 13:52 Seg Neutrophils # Man 0.0 K/mm3 (1.8-7.7) L 06/20/16 05:13 Band Neutrophils # 0.0 K/mm3 06/20/16 05:13 Lymphocytes # (Manual) 0.0 K/mm3 (1.2-5.4) L 06/20/16 05:13 Abs React Lymphs (Man) 0.0 K/mm3 06/20/16 05:13 Monocytes # (Manual) 0.0 K/mm3 (0.0-0.8) 06/20/16 05:13 Eosinophils # (Manual) 0.0 K/mm3 (0.0-0.4) 06/20/16 05:13 Basophils # (Manual) 0.0 K/mm3 (0.0-0.1) 06/20/16 05:13 Metamyelocytes # 0.0 K/mm3 06/20/16 05:13 Myelocytes # 0.0 K/mm3 06/20/16 05:13 Promyelocytes # 0.0 K/mm3 06/20/16 05:13 Blast Cells # 0.0 K/mm3 06/20/16 05:13 WBC Morphology Not Reportable 06/20/16 05:13 Hypersegmented Neuts Not Reportable 06/20/16 05:13 Hyposegmented Neuts Not Reportable 06/20/16 05:13 Hypogranular Neuts Not Reportable 06/20/16 05:13 Smudge Cells Not Reportable 06/20/16 05:13 Toxic Granulation Not Reportable 06/20/16 05:13 Toxic Vacuolation Not Reportable 06/20/16 05:13 Dohle Bodies Not Reportable 06/20/16 05:13 Pelger-Huet Anomaly Not Reportable 06/20/16 05:13 Werner Rods Not Reportable 06/20/16 05:13 Platelet Estimate Appears decreased 06/20/16 05:13 Clumped Platelets Not Reportable 06/20/16 05:13 Plt Clumps, EDTA Not Reportable 06/20/16 05:13 Large Platelets Not Reportable 06/20/16 05:13 Giant Platelets Not Reportable 06/20/16 05:13 Platelet Satelliting Not Reportable 06/20/16 05:13 Plt Morphology Comment Not Reportable 06/20/16 05:13 RBC Morphology Not Reportable 06/20/16 05:13 Dimorphic RBCs Not Reportable 06/20/16 05:13 Polychromasia Not Reportable 06/20/16 05:13 Hypochromasia Not Reportable 06/20/16 05:13 Poikilocytosis 1+ 06/20/16 05:13 Anisocytosis 1+ 06/20/16 05:13 Microcytosis Not Reportable 06/20/16 05:13 Macrocytosis Not Reportable 06/20/16 05:13 Spherocytes Not Reportable 06/20/16 05:13 Pappenheimer Bodies Not Reportable 06/20/16 05:13 Sickle Cells Not Reportable 06/20/16 05:13 Target Cells Not Reportable 06/20/16 05:13 Tear Drop Cells Not Reportable 06/20/16 05:13 Ovalocytes Not Reportable 06/20/16 05:13 Helmet Cells Not Reportable 06/20/16 05:13 Chua-[place] Bodies Not Reportable 06/20/16 05:13 [place] Rings Not Reportable 06/20/16 05:13 [place] Cells Not Reportable 06/20/16 05:13 Bite Cells Not Reportable 06/20/16 05:13 Crenated Cell Not Reportable 06/20/16 05:13 Elliptocytes 1+ 06/20/16 05:13 Acanthocytes (Spur) Not Reportable 06/20/16 05:13 Rouleaux Not Reportable 06/20/16 05:13 Hemoglobin C Crystals Not Reportable 06/20/16 05:13 Schistocytes Not Reportable 06/20/16 05:13 Malaria parasites Not Reportable 06/20/16 05:13 Eddie Bodies Not Reportable 06/20/16 05:13 Hem Pathologist Commnt No 06/20/16 05:13 Sodium 138 mmol/L (137-145) 06/21/16 05:25 Potassium 4.5 mmol/L (3.6-5.0) 06/21/16 05:25 Chloride 97.3 mmol/L (98-107) L 06/21/16 05:25 Carbon Dioxide 26 mmol/L (22-30) D 06/21/16 05:25 Anion Gap 19 mmol/L 06/21/16 05:25 BUN 24 mg/dL (7-17) H 06/21/16 05:25 Creatinine 8.1 mg/dL (0.7-1.2) H 06/21/16 05:25 Estimated GFR 7 ml/min 06/21/16 05:25 BUN/Creatinine Ratio 2.96 % 06/21/16 05:25 Glucose 107 mg/dL (65-100) H 06/21/16 05:25 Lactic Acid 1.9 mmol/L (0.7-2.0) 06/19/16 13:52 Calcium 6.9 mg/dL (8.4-10.2) L D 06/21/16 05:25 Phosphorus 2.6 mg/dL (2.5-4.5) 06/20/16 19:22 Magnesium 1.6 mg/dL (1.7-2.3) L 06/20/16 19:20 Total Bilirubin 0.4 mg/dL (0.1-1.2) 06/20/16 05:13 AST 14 units/L (5-40) 06/20/16 05:13 ALT 9 units/L (7-56) 06/20/16 05:13 Alkaline Phosphatase 78 units/L (35-129) 06/20/16 05:13 Total Protein 7.9 g/dL (6.3-8.2) 06/20/16 05:13 Albumin 2.9 g/dL (3.9-5) L 06/20/16 05:13 Albumin/Globulin Ratio 0.6 % 06/20/16 05:13 PTH Intact 2.71 pg/mL (15-65) L 06/20/16 19:21
[2016-06-22 15:03] LABS: Basophils % (Auto) 0.3 % (0.0-1.8); Eosinophils % (Auto) 2.2 % (0.0-4.3); Hematocrit 43.4 % (30.3-42.9); Hemoglobin 13.7 gm/dl (10.1-14.3); Mean Corpuscular HGB Conc 32 % (30-34); Mean Corpuscular Hemoglobin 30 pg (28-32); Mean Corpuscular Volume 95 fl (79-97); Platelet Count 179 K/mm3 (140-440); Red Blood Count 4.57 M/mm3 (3.65-5.03); Red Cell Distribution Width 19.1 % (13.2-15.2)
[2016-06-22 15:16] LABS: BUN/Creatinine Ratio 3.88; Calcium 7.9 mg/dL (8.4-10.2); Chloride 91.2 mmol/L (98-107); Magnesium 2.1 mg/dL (1.7-2.3); Potassium 4.6 mmol/L (3.6-5.0)
[2016-06-22] MEDS: TYLENOL PO PRN (16:09)
[2016-06-22] MEDS: ZOFRAN IV PRN ×2 (16:27→16:30)
[2016-06-22] MEDS ORDERED: VANCOMYCIN/NS 1 GM/250 ML 1 GM/250 ML BAG IV ONE (18:00)
[2016-06-23] MEDS: OSCAL PO SCH ×2 (00:01→10:14)
[2016-06-23] MEDS: CALTRATE PLUS PO SCH ×2 (00:01→10:15)
[2016-06-23] MEDS: DILAUDID IV PRN (00:02)
[2016-06-23] MEDS: PERCOCET 5/325 PO PRN ×2 (01:14→10:12)
[2016-06-23] MEDS: HEPARIN SUB-Q SCH ×2 (03:28→10:16)
[2016-06-23 09:51] VITALS: BP 121/73
[2016-06-23] MEDS: PEPCID IV SCH (10:14)
[2016-06-23] MEDS: MAG-OX PO SCH (10:14)
[2016-06-23] MEDS: COZAAR PO SCH (10:14)
--- NOTE | 2016-06-23 10:40 | Progress Note ---
Assessment and Plan end-stage renal disease currently on maintenance hemodialysis will HD MWF with 3.5 ca bath Secondary hyperparathyroidism with severe hypocalcemia clinically asymptomatic no complaints of tingling numbness Shows calcium is better likely due to noncompliance she was not taking medicines like she should, better Her infection currently being followed by primary team Limited long-term prognosis due to multiple comorbidities will continue to follow Subjective Interval history: Patient was seen today for follow-up, she is currently followed at [facility] Denies any complaints of chest pain pressure or shortness of breath Vitals labs intake output medications were reviewed Events at 24 hours were noted Objective - Vital Signs Vital signs: Vital Signs - 12hr 06/23/16 06/23/16 06/23/16 00:02 01:14 08:25 Temperature 99.9 F H Pulse Rate [ 86 From Monitor] Respiratory 20 20 18 Rate Blood Pressure 121/73 [Left Arm] O2 Sat by Pulse 96 Oximetry - General Appearance General appearance: appears stated age EENT: mucous membranes moist Neck: no JVD Respiratory: Present: Clear to Ascultation Cardiology: regular Gastrointestinal: normal Neurologic: no focal deficit - Lab 06/22/16 14:29 06/22/16 14:29 Most recent lab results Calcium 7.9 mg/dL (8.4-10.2) L 06/22/16 14:29 Phosphorus 2.6 mg/dL (2.5-4.5) 06/20/16 19:22 Magnesium 2.1 mg/dL (1.7-2.3) 06/22/16 14:29
--- NOTE | 2016-06-23 12:19 | Progress Note ---
Assessment and Plan Assessment and plan: --Hypocalcemia Replacement therapy, nephrology following Significant Improvement closely monitor --End-stage renal disease on hemodialysis Nephrology following Hemodialysis per schedule --Left ankle infected wound and cellulitis Wound care, IV antibiotics, wound cultures Orthopedic consultation for assistance with management --Hyperkalemia Corrected --DVT prophylaxis Continue heparin Counseling done patient strongly advised to comply with diet Medications and hemodialysis, verbalized understanding --Ongoing tobacco use Smoking cessation counseling done, this and consequences of ongoing tobacco use explained to the patient Advised nicotine patch, as needed Patient's condition treatment plan discussed in detail with the patient, her nurse as well as the case management History Interval history: Patient seen and evaluated this morning medical records reviewed Patient keeps leaving the floor frequently, today reported that she wants to leave AGAINST MEDICAL ADVICE I explained to the patient, the need for antibiotics and orthopedic evaluation in view of her left foot infected wound Risks and consequences of leaving AGAINST MEDICAL ADVICE disrupting the treatment was explained to the patient She verbalized understanding She has no new complaints, alert awake oriented 3 not in acute distress Hospitalist Physical - Constitutional Vitals: Temp Pulse Resp BP Pulse Ox 99.9 F H 86 18 121/73 96 06/23/16 08:25 06/23/16 08:25 06/23/16 08:25 06/23/16 08:25 06/23/16 08:25 General appearance: Present: no acute distress, well-nourished - EENT Eyes: Present: PERRL, EOM intact - Neck Neck: Present: supple, normal ROM - Respiratory Respiratory effort: normal Respiratory: negative: rales, rhonchi, wheezing - Cardiovascular Rhythm: regular Heart Sounds: Present: S1 & S2 - Extremities Extremities: no ischemia, pulses intact, pulses symmetrical, abnormal ( infected wound./Dressing intact) - Abdominal General gastrointestinal: soft, non-tender, non-distended, normal bowel sounds - Integumentary Integumentary: Present: clear, warm - Psychiatric Psychiatric: appropriate mood/affect, cooperative - Neurologic Neurologic: CNII-XII intact, moves all extremities Results - Labs CBC & Chem 7: 06/22/16 14:29 06/22/16 14:29 Labs: Laboratory Last Values WBC 9.0 K/mm3 (4.5-11.0) 06/22/16 14:29 RBC 4.57 M/mm3 (3.65-5.03) 06/22/16 14: Hgb 13.7 gm/dl (10.1-14.3) 06/22/16 14:29 Hct 43.4 % (30.3-42.9) H D 06/22/16 14:29 MCV 95 fl (79-97) 06/22/16 14:29 MCH 30 pg (28-32) 06/22/16 14: MCHC 32 % (30-34) 06/22/16 14:29 RDW 19.1 % (13.2-15.2) H 06/22/16 14:29 Plt Count 179 K/mm3 (140-440) 06/22/16 14:29 Lymph % (Auto) 15.9 % (13.4-35.0) 06/22/16 14:29 [place] % (Auto) 7.3 % (0.0-7.3) 06/22/16 14: Eos % (Auto) 2.2 % (0.0-4.3) 06/22/16 14:29 Baso % (Auto) 0.3 % (0.0-1.8) 06/22/16 14:29 Lymph # 1.4 K/mm3 (1.2-5.4) 06/22/16 14:29 [place] # 0.7 K/mm3 (0.0-0.8) 06/22/16 14:29 Eos # 0.2 K/mm3 (0.0-0.4) 06/22/16 14:29 Baso # 0.0 K/mm3 (0.0-0.1) 06/22/16 14:29 Add Manual Diff Complete 06/20/16 05:13 Total Counted 100 06/20/16 05:13 Seg Neutrophils % 74.3 % (40.0-70.0) H 06/22/16 14:29 Seg Neuts % (Manual) 69.0 % (40.0-70.0) 06/20/16 05:13 Band Neutrophils % 0 % 06/20/16 05:13 Lymphocytes % (Manual) 19.0 % (13.4-35.0) 06/20/16 05:13 Reactive Lymphs % (Man) 0 % 06/20/16 05:13 Monocytes % (Manual) 8.0 % (0.0-7.3) H 06/20/16 05:13 Eosinophils % (Manual) 2.0 % (0.0-4.3) 06/20/16 05:13 Basophils % (Manual) 1.0 % (0.0-1.8) 06/20/16 05:13 Metamyelocytes % 0 % 06/20/16 05:13 Myelocytes % 1.0 % 06/20/16 05:13 Promyelocytes % 0 % 06/20/16 05:13 Blast Cells % 0 % 06/20/16 05:13 Nucleated RBC % Not Reportable 06/20/16 05:13 Seg Neutrophils # 6.7 K/mm3 (1.8-7.7) 06/22/16 14:29 Seg Neutrophils # Man 0.0 K/mm3 (1.8-7.7) L 06/20/16 05:13 Band Neutrophils # 0.0 K/mm3 06/20/16 05:13 Lymphocytes # (Manual) 0.0 K/mm3 (1.2-5.4) L 06/20/16 05:13 Abs React Lymphs (Man) 0.0 K/mm3 06/20/16 05:13 Monocytes # (Manual) 0.0 K/mm3 (0.0-0.8) 06/20/16 05:13 Eosinophils # (Manual) 0.0 K/mm3 (0.0-0.4) 06/20/16 05:13 Basophils # (Manual) 0.0 K/mm3 (0.0-0.1) 06/20/16 05:13 Metamyelocytes # 0.0 K/mm3 06/20/16 05:13 Myelocytes # 0.0 K/mm3 06/20/16 05:13 Promyelocytes # 0.0 K/mm3 06/20/16 05:13 Blast Cells # 0.0 K/mm3 06/20/16 05:13 WBC Morphology Not Reportable 06/20/16 05:13 Hypersegmented Neuts Not Reportable 06/20/16 05:13 Hyposegmented Neuts Not Reportable 06/20/16 05:13 Hypogranular Neuts Not Reportable 06/20/16 05:13 Smudge Cells Not Reportable 06/20/16 05:13 Toxic Granulation Not Reportable 06/20/16 05:13 Toxic Vacuolation Not Reportable 06/20/16 05:13 Dohle Bodies Not Reportable 06/20/16 05:13 Pelger-Huet Anomaly Not Reportable 06/20/16 05:13 Werner Rods Not Reportable 06/20/16 05:13 Platelet Estimate Appears decreased 06/20/16 05:13 Clumped Platelets Not Reportable 06/20/16 05:13 Plt Clumps, EDTA Not Reportable 06/20/16 05:13 Large Platelets Not Reportable 06/20/16 05:13 Giant Platelets Not Reportable 06/20/16 05:13 Platelet Satelliting Not Reportable 06/20/16 05:13 Plt Morphology Comment Not Reportable 06/20/16 05:13 RBC Morphology Not Reportable 06/20/16 05:13 Dimorphic RBCs Not Reportable 06/20/16 05:13 Polychromasia Not Reportable 06/20/16 05:13 Hypochromasia Not Reportable 06/20/16 05:13 Poikilocytosis 1+ 06/20/16 05:13 Anisocytosis 1+ 06/20/16 05:13 Microcytosis Not Reportable 06/20/16 05:13 Macrocytosis Not Reportable 06/20/16 05:13 Spherocytes Not Reportable 06/20/16 05:13 Pappenheimer Bodies Not Reportable 06/20/16 05:13 Sickle Cells Not Reportable 06/20/16 05:13 Target Cells Not Reportable 06/20/16 05:13 Tear Drop Cells Not Reportable 06/20/16 05:13 Ovalocytes Not Reportable 06/20/16 05:13 Helmet Cells Not Reportable 06/20/16 05:13 [place] Bodies Not Reportable 06/20/16 05:13 [place] Rings Not Reportable 06/20/16 05:13 [place] Cells Not Reportable 06/20/16 05:13 Bite Cells Not Reportable 06/20/16 05:13 Crenated Cell Not Reportable 06/20/16 05:13 Elliptocytes 1+ 06/20/16 05:13 Acanthocytes (Spur) Not Reportable 06/20/16 05:13 Rouleaux Not Reportable 06/20/16 05:13 Hemoglobin C Crystals Not Reportable 06/20/16 05:13 Schistocytes Not Reportable 06/20/16 05:13 Malaria parasites Not Reportable 06/20/16 05:13 Eddie Bodies Not Reportable 06/20/16 05:13 Hem Pathologist Commnt No 06/20/16 05:13 Sodium 135 mmol/L (137-145) L 06/22/16 14:29 Potassium 4.6 mmol/L (3.6-5.0) 06/22/16 14:29 Chloride 91.2 mmol/L (98-107) L 06/22/16 14:29 Carbon Dioxide 25 mmol/L (22-30) 06/22/16 14:29 Anion Gap 23 mmol/L 06/22/16 14:29 BUN 28 mg/dL (7-17) H 06/22/16 14:29 Creatinine 7.2 mg/dL (0.7-1.2) H 06/22/16 14:29 Estimated GFR 8 ml/min 06/22/16 14:29 BUN/Creatinine Ratio 3.88 % 06/22/16 14:29 Glucose 85 mg/dL (65-100) 06/22/16 14:29 Lactic Acid 1.9 mmol/L (0.7-2.0) 06/19/16 13:52 Calcium 7.9 mg/dL (8.4-10.2) L 06/22/16 14:29 Ionized Calcium 3.8 mg/dL (4.8-5.6) L 06/21/16 05:25 Phosphorus 2.6 mg/dL (2.5-4.5) 06/20/16 19:22 Magnesium 2.1 mg/dL (1.7-2.3) 06/22/16 14:29 Total Bilirubin 0.4 mg/dL (0.1-1.2) 06/20/16 05:13 AST 14 units/L (5-40) 06/20/16 05:13 ALT 9 units/L (7-56) 06/20/16 05:13 Alkaline Phosphatase 78 units/L (35-129) 06/20/16 05:13 Total Protein 7.9 g/dL (6.3-8.2) 06/20/16 05:13 Albumin 2.9 g/dL (3.9-5) L 06/20/16 05:13 Albumin/Globulin Ratio 0.6 % 06/20/16 05:13 PTH Intact 2.71 pg/mL (15-65) L 06/20/16 19:21
--- NOTE | 2016-06-23 16:29 | Discharge Summary ---
Providers - Providers Date of Admission: 06/19/16 21:00 Date of discharge: 06/23/16 Attending physician: JAELYN WAGNER 06/20/16 08:58 Consult to Wound/ET Nurse [CONS] Routine Reason For Exam: wound eval 06/21/16 15:43 Consult to Physician [CONS] Routine Consulting Provider: FRANCISCO SPEAR V Reason For Exam: Lt foot deep nonhealing ulcer Place consult to:: employment instructional associate Notified:: yes Phone number called:: [phone] Was contact made?: Yes If yes, spoke with:: placido Time called:: 16:02 Primary care physician: ANTHROPOLOGIST Hospitalization Reason for admission: left foot infection with purulent discharge Condition: Stable Hospital course: Patient was admitted with left foot infection Started on IV antibiotics, wound care, cultures Requested orthopedic consultation Patient's symptoms slowly but gradually improving Also had hypocalcemia, received replacement therapy, with significant improvement of calcium levels Today patient wanted to leave AMA, place and consequences of leaving AGAINST MEDICAL ADVICE discussed with the patient Verbalized understanding, wanted to leave, signed the AMA papers and left the hospital Patient also has tobacco use history, smoking cessation counseling done patient advised nicotine patch Final diagnosis; Left foot infected wound with cellulitis Hypocalcemia mild improvement End-stage renal disease on hemodialysis Ongoing tobacco use Electrolyte imbalances corrected Medical noncompliance Disposition: LEFT AGAINST MEDICAL ADVICE Time spent for discharge: 32 min Core Measure Documentation - Palliative Care Palliative Care/ Comfort Measures: Not Applicable - Core Measures Any of the following diagnoses?: none Exam - Constitutional Vitals: Temp Pulse Resp BP Pulse Ox 99.9 F H 86 18 121/73 96 06/23/16 08:25 06/23/16 08:25 06/23/16 08:25 06/23/16 08:25 06/23/16 08:25 General appearance: Present: no acute distress, well-nourished - EENT Eyes: Present: PERRL, EOM intact - Neck Neck: Present: supple, normal ROM - Respiratory Respiratory effort: normal Respiratory: negative: rales, rhonchi, wheezing - Cardiovascular Rhythm: regular Heart Sounds: Present: S1 & S2 - Extremities Extremities: no ischemia, pulses intact, pulses symmetrical, abnormal (foot infected wound and cellulitis in dressing) Peripheral Pulses: within normal limits - Abdominal General gastrointestinal: Present: soft, non-tender, non-distended, normal bowel sounds - Integumentary Integumentary: Present: clear, warm - Musculoskeletal Musculoskeletal: strength equal bilaterally, generalized weakness - Psychiatric Psychiatric: appropriate mood/affect, cooperative - Neurologic Neurologic: CNII-XII intact, moves all extremities Plan Additional Instructions: Left AGAINST MEDICAL ADVICE Follow up with: PRIMARY CARE, [Primary Care Provider] - 3-5 Days
--- NOTE | 2016-06-26 06:55 | Emergency Department Report ---
Entered by ALEM KERN, acting as scribe for CECILIO BATRES PA. - General Chief Complaint: Extremity Injury, Lower Stated Complaint: LT FOOT LACERATION Time Seen by Provider: 06/19/16 12:48 Source: patient Mode of arrival: Ambulatory Limitations: No Limitations - History of Present Illness Initial Comments: 36 year old female with PMhx nephrotic syndrome, dialysis presents to the ED for evaluation of callous to bottom of left foot. She reports callous was evaluated by PCP when it was approximately dime sized but notes area became cracked and enlarged 2 weeks age. She reports malodourous drainage with small amount blood from area for several days. 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 Patient does not make any urine and attends dialysis MWF; states she did not go to dialysis today and last treatment was 2 days ago. Denies fever, nausea, vomiting, chest pain, shortness of breath, chills and abdominal pain. Onset/Timin -: week(s) Extremity Location: Left: Foot Context: other (callous that became enlarged and cracked) Associated Symptoms: other (malodours drainage with small amount of blood in drainage). denies: nausea/vomiting, fever - Related Data Home Medications Medication Instructions Recorded Confirmed Last Taken No Known Home Medications [No 06/19/16 06/19/16 Unknown Reported Home Medications] Allergies Allergy/AdvReac Type Severity Reaction Status Date / Time No Known Allergies Allergy Verified 06/19/16 10:46 ED Review of Systems Comment: All other systems reviewed and negative Constitutional: denies: chills, fever Respiratory: denies: shortness of breath Cardiovascular: denies: chest pain Skin: other (large, cracked callous bottom of left foot with malodorous discharge, discharge has small amount of blood present) ED Past Medical Hx - Past Medical History Hx Hypertension: Yes Hx Renal Disease: Yes (DIALYSIS M-W-F) - Surgical History Additional Surgical History: THYROID SURGERY. FISTULA LEFT ARM X 2 - Social History Smoking Status: Current Every Day Smoker Substance Use Type: None - Medications Home Medications: Home Medications Medication Instructions Recorded Confirmed Last Taken Type No Known Home Medications [No 06/19/16 06/19/16 Unknown History Reported Home Medications] ED Physical Exam - General Limitations: No Limitations - Other Other exam information: GENERAL: Patient is alert and oriented x 3. No apparent distress. HEAD: Head is normocephalic and atraumatic. LUNGS: Symmetrical with respiration. No wheezing, rales or crackles, CTAB. HEART: Regular rate and rhythm with normal S1/S2 present. No murmurs, rubs, or gallops. EXTREMITIES/MUSCULOSKELETAL: Full ROM bilaterally. Peripheral pulses are intact. Capillary refill is less than 2 seconds. SKIN: 7-8 cm laceration to sole of mid left foot. Laceration extends from middle phalanx of second toe laterally. There is a 5.5 cm area of excoriation distal to laceration and 4 x 7.5 cm area of necrotic appearing tissue proximal to laceration. Affected area has slight increased warmth to touch. NEUROLOGIC: Patient is alert and oriented to person, time, and place. PSYCHIATRIC: Mood is congruent with affect. ED Course Vital Signs 06/19/16 06/19/16 10:48 12:25 Temperature 97.5 F L 97.6 F Pulse Rate 81 71 Respiratory 18 18 Rate Blood Pressure 144/93 Blood Pressure 145/89 [Right] O2 Sat by Pulse 100 100 Oximetry ED Medical Decision Making - Lab Data Result diagrams: 06/19/16 13:52 06/19/16 16:22 - Radiology Data Radiology results: report reviewed, image reviewed ROUTINE CHEST, TWO VIEWS: HISTORY: Sepsis. The trachea, heart, mediastinal contour, lung modi and bony thorax are unremarkable. IMPRESSION: No acute cardiopulmonary process. Transcribed By: TTR Dictated By: OMARI THOMPSON JR, MD Electronically Authenticated By: OMARI THOMPSON JR, MD Signed Date/Time: 06/19/16 1509 LEFT FOOT, 2 VIEWS History: Osteomyelitis, pain. Findings: Compared to 08/21/09. There is moderate diffuse soft tissue swelling and possible laceration/ulceration laterally. Severe degenerative changes are noted throughout the midfoot and the ankle joint. There is no obvious fracture or bony destruction. Impression: Chronic findings are as outlined above. No obvious findings of osteomyelitis on 2 views x-ray. If further evaluation is needed, MRI with contrast would provide the most information. Transcribed By: TTR Dictated By: OMARI THOMPSON JR, MD Electronically Authenticated By: OMARI THOMPSON JR, MD Signed Date/Time: 06/19/16 1434 - Medical Decision Making 36 year old female patient presents today with callous to sole of left foot x 2 weeks and malodorous drainage from area for 2-3 days, no fever, chills. Chest x- ray reveals no acute cardiopulmonary changes. Her left foot x-ray reveals diffuse soft tissue swelling and severe degenerative changes throughout midfoot and ankle joint but no acute fracture or bony destruction. Her CMP reveals elevated potassium and low calcium. Patient has a history of nephrotic syndrome , end stage renal disease, and nephrectomy. Consulted with Dr. Massey, video game tester covering for Dr. Yu, regarding patient's abnormal lab results. After speaking with Dr. Andrews, plan is to admit patient. Admission report given to Dr. Hopper. ED Disposition Clinical Impression: Hypocalcemia, Hyperkalemia, End stage renal disease Disposition: OP ADMITTED IP TO THIS HOSP Is pt being admited?: Yes Does the pt Need Aspirin: No Condition: Stable Instructions: Chronic Kidney Disease (ED) Additional Instructions: Patient is being admitted to this hospital. Referrals: PRIMARY CARE,MD [Primary Care Provider] - 3-5 Days This documentation as recorded by the ERLIN st REBEKAH,accurately reflects the service I personally performed and the decisions made by ,CECILIO BATRES PA.
== END 2016-06-23 14:00 | disposition left against medical advice (07) | DRG 602 ==
LOC: ED 10:41 → 3A 21:00
PROVIDERS: ADMIT Internal Medicine; ATTEND Internal Medicine
PROC: 5A1D60Z (ICD-10-PCS; principal; 2016-06-19)
DX: L03.116 Cellulitis of left lower limb (principal); N18.6 End stage renal disease; I12.0 Hypertensive chronic kidney disease with stage 5 chronic kidney disease or end stage renal disease; L97.522 Non-pressure chronic ulcer of other part of left foot with fat layer exposed; E87.5 Hyperkalemia; E83.51 Hypocalcemia; F17.200 Nicotine dependence, unspecified, uncomplicated; D63.1 Anemia in chronic kidney disease; Z99.2 Dependence on renal dialysis; Z91.15 Patient's noncompliance with renal dialysis; Z71.6 Tobacco abuse counseling
CPT/HCPCS: 36415; 71020; 80048; 80053; 82140; 82306; 82330; 83735; 83970; 84100; 85007; 85025; 87040; 87116; 99406; J0610; J0636; J1170; J1644; J1956; J2405; J3370; J7030; J7050

== ENCOUNTER 2016-11-24 18:06 | Emergency (ER) | payer MEDICARE ==
[2016-11-24 19:10] LABS: Basophils % (Auto) 0.8 % (0.0-1.8); Eosinophils % (Auto) 11.4 % (0.0-4.3); Hematocrit 37.1 % (30.3-42.9); Mean Corpuscular HGB Conc 32 % (30-34); Mean Corpuscular Hemoglobin 30 pg (28-32); Mean Corpuscular Volume 94 fl (79-97); Platelet Count 169 K/mm3 (140-440); Red Blood Count 3.95 M/mm3 (3.65-5.03); Red Cell Distribution Width 17.6 % (13.2-15.2); White Blood Count 5.5 K/mm3 (4.5-11.0)
[2016-11-24 19:49] LABS: BUN/Creatinine Ratio 6.3; Calcium 6.6 mg/dL (8.4-10.2); Chloride 92.6 mmol/L (98-107); Potassium 4.9 mmol/L (3.6-5.0)
--- NOTE | 2016-11-25 06:46 | Emergency Department Report ---
ED Chest Pain HPI - General Chief Complaint: Chest Pain Stated Complaint: CHEST PAIN/FEVER/ACESS NOT WORKING Time Seen by Provider: 11/25/16 06:37 Source: patient Mode of arrival: Wheelchair Limitations: No Limitations - History of Present Illness Initial Comments: 36-year-old female here with chest pain on the left side. Patient states the pain started over the course of last week. She's had similar pain in the past. She hasassociated symptoms including no shortness of breath no nausea no vomiting. Pain is on the left side of her chest does not radiate. It does not get worse with anything. Denies fevers chills. She does also complain of some pain in her house is access. She is supposed to be dialyzed on Friday. MD Complaint: chest pain -: week(s) (1) Onset: during rest, during exertion Pain Location: left chest Pain Radiation: none Severity: moderate Severity scale (0 -10): 10 Quality: tightness Consistency: constant Improves With: nothing Worsens With: nothing re: denies: nausea, vomting, diaphoresis, dyspnea, sense of impending doom Other Symptoms: denies: cough, fever, syncope, rash, acid taste in mouth, leg swelling, palpitations - Related Data Previous Rx's Medication Instructions Recorded Last Taken Type Azithromycin [Zithromax Z-CRISTIAN] 250 mg PO DAILY #4 tablet 11/25/16 Unknown Rx Allergies Allergy/AdvReac Type Severity Reaction Status Date / Time No Known Allergies Allergy Verified 06/19/16 10:46 Heart Score - HEART Score History: Slightly suspicious EKG: Non-specific Age: < 45 Risk factors: > 3 risk factors or hx of atherosclerotic disease Troponin: < normal limit HEART Score: 3 ED Review of Systems ROS: Stated complaint: CHEST PAIN/FEVER/ACESS NOT WORKING Other details as noted in HPI Comment: All other systems reviewed and negative Constitutional: denies: chills, fever Eyes: denies: eye pain, eye discharge, vision change ENT: denies: ear pain, throat pain Respiratory: denies: cough, shortness of breath, wheezing Cardiovascular: chest pain. denies: palpitations Endocrine: no symptoms reported Gastrointestinal: denies: abdominal pain, nausea, diarrhea Genitourinary: denies: urgency, dysuria, discharge Musculoskeletal: other (bandage noted on left foot, left upper arm dialysis access with positive thrill). denies: back pain, joint swelling, arthralgia Skin: denies: rash, lesions Neurological: denies: headache, weakness, paresthesias Psychiatric: denies: anxiety, depression Hematological/Lymphatic: denies: easy bleeding, easy bruising ED Past Medical Hx - Past Medical History Hx Hypertension: Yes Hx Congestive Heart Failure: No Hx Diabetes: No Hx Renal Disease: Yes (DIALYSIS M-W-F) Hx Asthma: No Hx COPD: No - Surgical History Past Surgical History?: Yes Additional Surgical History: THYROID SURGERY. FISTULA LEFT ARM X 2. 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 Absent: scleral icterus, conjunctival injection - ENT ENT exam: Present: mucous membranes moist - Neck Neck exam: Present: normal inspection. Absent: lymphadenopathy, thyromegaly - Respiratory Respiratory exam: Present: normal lung sounds bilaterally. Absent: respiratory distress, wheezes, rales - Cardiovascular Cardiovascular Exam: Present: regular rate, normal rhythm, normal heart sounds. Absent: systolic murmur, diastolic murmur, rubs, gallop - GI/Abdominal GI/Abdominal exam: Present: soft, normal bowel sounds. Absent: distended, tenderness, guarding - Extremities Exam Extremities exam: Present: other (bandage noted on left foot, left upper arm dialysis access with positive thrill) - Back Exam Back exam: Present: normal inspection - Neurological Exam Neurological exam: Present: alert, oriented X3 - Psychiatric Psychiatric exam: Present: normal affect, normal mood - Skin Skin exam: Present: warm, dry, intact, normal color. Absent: rash ED Course Vital Signs 11/24/16 11/25/16 11/25/16 18:34 01:44 06:41 Temperature 98.4 F 98.0 F 98.1 F Pulse Rate 65 72 Respiratory 16 18 Rate Blood Pressure 146/88 165/95 O2 Sat by Pulse 100 Oximetry 11/25/16 11/25/16 11/25/16 06:42 06:45 06:51 Temperature Pulse Rate 74 72 Respiratory 12 9 L 8 L Rate Blood Pressure 145/99 161/93 O2 Sat by Pulse 100 100 Oximetry 11/25/16 11/25/16 11/25/16 06:55 07:00 07:01 Temperature Pulse Rate 78 71 Respiratory 13 11 L 16 Rate Blood Pressure 161/93 147/80 O2 Sat by Pulse 100 99 Oximetry 11/25/16 11/25/16 11/25/16 07:05 07:11 07:15 Temperature Pulse Rate 70 70 73 Respiratory 17 16 11 L Rate Blood Pressure 147/80 147/80 153/84 O2 Sat by Pulse 99 99 99 Oximetry 11/25/16 11/25/16 11/25/16 07:21 07:25 07:30 Temperature Pulse Rate 70 70 70 Respiratory 16 17 11 L Rate Blood Pressure 153/84 153/84 140/80 O2 Sat by Pulse 99 100 100 Oximetry 11/25/16 11/25/16 11/25/16 07:35 07:41 07:45 Temperature Pulse Rate 81 71 71 Respiratory 17 8 L 9 L Rate Blood Pressure 140/80 140/80 140/78 O2 Sat by Pulse 100 99 100 Oximetry ED Medical Decision Making - Lab Data Result diagrams: 11/24/16 18:43 11/24/16 18:43 Laboratory Results - last 24 hr 11/24/16 11/24/16 11/24/16 18:43 18:43 23:39 WBC 5.5 RBC 3.95 Hgb 12.0 Hct 37.1 MCV 94 MCH 30 MCHC 32 RDW 17.6 H Plt Count 169 Lymph % (Auto) 26.7 Beckham % (Auto) 11.1 H Eos % (Auto) 11.4 H Baso % (Auto) 0.8 Lymph # 1.5 Beckham # 0.6 Eos # 0.6 H Baso # 0.0 Seg Neutrophils % 50.0 Seg Neutrophils # 2.8 Sodium 139 Potassium 4.9 Chloride 92.6 L Carbon Dioxide 26 Anion Gap 25 BUN 46 H Creatinine 7.3 H Estimated GFR 8 BUN/Creatinine Ratio 6.30 Glucose 73 Calcium 6.6 L Troponin T 0.019 0.015 11/25/16 04:47 WBC RBC Hgb Hct MCV MCH MCHC RDW Plt Count Lymph % (Auto) Beckham % (Auto) Eos % (Auto) Baso % (Auto) Lymph # Beckham # Eos # Baso # Seg Neutrophils % Seg Neutrophils # Sodium Potassium Chloride Carbon Dioxide Anion Gap BUN Creatinine Estimated GFR BUN/Creatinine Ratio Glucose Calcium Troponin T 0.013 - EKG Data -: EKG Interpreted by Me - EKG Data 11/25/16 06:45 Sinus 75 normal axis, T-wave inversions in V5 and V6 prolonged QTC of 538 - Medical Decision Making 36-year-old female with end-stage renal disease here with complaint of left- sided chest pain. She has no associated symptoms with her chest pain and is nonexertional. She has 2 negative troponins. Her EKG is nonspecific and does have some T-wave inversions in the V5 and V6 leads. She is low risk on the heart score. Plan to treat pain in the emergency department despite having her follow-up with her nanotechnician as an outpatient. Mild patchy infiltrate on chest x-ray at the left lung base. Possible outpatient acquired pneumonia. She has no fever no elevation in white count so I will cover her with azithromycin. It is also possible this is just a function of her end-stage renal disease. Portions of this chart were dictated with dictation software. There may be dictation errors contained within this note. Critical care attestation.: If time is entered above; I have spent that time in minutes in the direct care of this critically ill patient, excluding procedure time. ED Disposition Clinical Impression: Chest pain, Pulmonary infiltrate in left lung on CXR Disposition: TO HOME OR SELFCARE Is pt being admited?: No Condition: Stable Instructions: Chest Pain (ED) Prescriptions: Azithromycin [Zithromax Z-CRISTIAN] 250 mg PO DAILY #4 tablet Referrals: PRIMARY CARE, [Primary Care Provider] - 3-5 Days
[2016-11-25] MEDS ORDERED: MORPHINE IM ONE (06:48)
[2016-11-25] MEDS ORDERED: MORPHINE IV ONE (06:55)
--- NOTE | 2016-11-25 07:19 | XRay Report ---
FINAL REPORT EXAM: XR CHEST 1V AP HISTORY: Chest pain. TECHNIQUE: A single frontal radiograph of the chest was obtained. No prior studies are available for comparison. FINDINGS: There is slight patient rotation. The heart is moderately enlarged. There is mild pulmonary vascular congestion and mild diffuse prominence of the interstitial markings, suggestive of mild pulmonary edema. There is mild patchy infiltrate at the left lung base. There is no pleural effusion or pneumothorax. There is a slight S shaped thoracolumbar scoliosis, slightly convex to the right in the upper thoracic region, and slightly convex to the left in the lower thoracic region. IMPRESSION: 1. Cardiomegaly with mild interstitial pulmonary edema. 2. Mild patchy infiltrate at the left lung base.
[2016-11-25] MEDS ORDERED: ZITHROMAX PO ONE (08:42)
[2016-11-25 09:06] VITALS: BP 127/88
== END 2016-11-25 09:44 | disposition home or self-care (01) ==
LOC: ED 18:06
DX: R07.89 Other chest pain (principal); I12.0 Hypertensive chronic kidney disease with stage 5 chronic kidney disease or end stage renal disease; N18.6 End stage renal disease; F17.210 Nicotine dependence, cigarettes, uncomplicated; Z99.2 Dependence on renal dialysis
CPT/HCPCS: 36415; 71010; 80048; 84484; 85025; 93005; 93010; 96374; 99284; J2270

== ENCOUNTER 2017-07-18 13:27 | Emergency (ER) | payer MEDICARE ==
[2017-07-18 14:13] VITALS: BP 97/58
== END 2017-07-18 14:13 | disposition left against medical advice (07) ==
LOC: ED 13:27
DX: R10.9 Unspecified abdominal pain (principal); R11.2 Nausea with vomiting, unspecified; Z53.21 Procedure and treatment not carried out due to patient leaving prior to being seen by health care provider